=== PATIENT | female | born 1965 | race Caucasian/White ===

== ENCOUNTER 2017-11-13 07:19 | Day surgery (SDC) | payer OTHER ==
[2017-10-11 10:38] VITALS: BMI 25.2
[2017-11-13] MEDS ORDERED: fentaNYL CITRATE 250 MCG/5 ML VIAL ONE (12:10)
[2017-11-13] MEDS ORDERED: PROPOFOL 20 ML ONE (12:10)
[2017-11-13] MEDS ORDERED: MIDAZOLAM HCL 2 MG/2 ML SINGLE DOSE VIAL ONE ×2 (12:10)
[2017-11-13] MEDS ORDERED: ROCURONIUM BROMIDE 50 MG/5 ML VIAL ONE (12:10)
[2017-11-13] MEDS ORDERED: EPINEPHrine/PF 1 MG/1 ML (1:1,000) AMPULE ONE (12:13)
[2017-11-13] MEDS ORDERED: LIDOCAINE HCL 1%, 10 MG/ML (20ML VIAL) ONE (12:13)
[2017-11-13] MEDS ORDERED: ceFAZolin SODIUM 1 GM VIAL ONE (12:46)
[2017-11-13] MEDS ORDERED: DEXAMETHASONE SOD PHOSPHATE 4 MG/1 ML VIAL ONE (12:58)
[2017-11-13] MEDS ORDERED: ONDANSETRON 4 MG/2 ML VIAL ONE ×2 (12:58→15:27)
[2017-11-13] MEDS ORDERED: LIDOCAINE HCL/PF 2% SDV 5ML VIAL ONE (12:59)
[2017-11-13] MEDS ORDERED: GUM MASTIC/STORAX/MSAL/ALCOHOL 1 DRP DROPSBTL MC ONE (15:28)
[2017-11-13] MEDS ORDERED: PROMETHAZINE HCL 25 MG/1 ML VIAL ONE (15:43)
[2017-11-13] MEDS ORDERED: PROMETHAZINE HCL 25 MG/1 ML VIAL IVPUSH ONE (15:45)
[2017-11-13] MEDS ORDERED: PROMETHAZINE HCL 25 MG/1 ML VIAL IVPUSH PRN (15:48)
[2017-11-13] MEDS ORDERED: ONDANSETRON 4 MG/2 ML VIAL IVPUSH PRN (15:48)
[2017-11-13] MEDS ORDERED: oxyCODONE HCL 5 MG TABLET PO PRN (15:48)
[2017-11-13] MEDS ORDERED: LACTATED RINGERS SOLUTION 1,000 ML IV SCH (16:00)
[2017-11-13 17:35] VITALS: TEMP 97.9
[2017-11-13] MEDS ORDERED: oxyCODONE HCL 5 MG TABLET ONE (17:55)
[2017-11-13 18:14] VITALS: BP 106/64; PULSE 92
--- NOTE | 2017-11-19 10:32 | PATH ---
Surgical Pathology Report Patient Name: NICK GARCIA [facility]. Rec. #: [id number] /Age/Gender: 1965 (Age: 52) / F Account: [id number] Location: [facility] AMBUL[facility]ORY Taken: 11/13/2017 Received: 11/13/2017 Reported: 11/19/2017 Physicians: Bunny Sandoval Specimen(s) Received A: LEFT BREAST TISSUE B: RIGHT BREAST TISSUE Clinical History Breast hypertrophy/cosmetic Final Diagnosis A. LEFT BREAST TISSUE, EXCISION: SKIN AND SUBCUTANEOUS ADIPOSE TISSUE WITH NO SIGNIFICANT PATHOLOGIC FINDINGS. B. RIGHT BREAST TISSUE, EXCISION: SKIN AND SUBCUTANEOUS ADIPOSE TISSUE WITH NO SIGNIFICANT PATHOLOGIC FINDINGS. Electronically Signed Ayah Tan M.D. Gross Description A. Received in formalin labeled "left breast tissue," is 22 g, 11.0 x 5.0 x 0.6 cm aggregate of sinclair skin fragments with minimal underlying soft tissue. The largest skin portion displays 2 mora metallic jimmy. No discrete lesions are identified. [employer] sections are submitted in one cassette. B. Received in formalin labeled "right breast tissue," is a 41 g, 7.5 x 5.5 x 2.0 cm aggregate of multiple unoriented portions of fibroadipose tissue and sinclair, unremarkable skin. Sectioning reveals foci of white fibrous tissue. No discrete lesions are identified. Director [employer] sections are submitted in one cassette. 11/15/201711/15/2017
--- NOTE | 2017-11-19 14:21 | OP ---
DATE OF OPERATION: 11/13/2017 ATTENDING SURGEON: Bunny Sandoval MD [employer] SUPERVISOR: KIERRA Negrete PREOPERATIVE DIAGNOSIS: Symptomatic macromastia with ptosis. POSTOPERATIVE DIAGNOSIS: Symptomatic macromastia with ptosis. PROCEDURE PERFORMED: Breast reduction mammoplasty. DRAINS: None. COMPLICATIONS: None. ESTIMATED BLOOD LOSS: 60 mL. FLUIDS ADMINISTERED: Crystalloid solution 1.2 L. ANESTHESIA: General with laryngeal mask anesthesia. DESCRIPTION OF PROCEDURE: Patient brought to the operating room, placed supine on the operating table. After induction of general laryngeal mask anesthesia, the patient's chest was prepped with chlorhexidine solution and draped with sterile drapes. Once this was completed, the sterile surgical marking pen was used to refresh the preoperative markings, and an appropriate timeout was performed identifying the patient and the nature of the procedure, allowing all operative participants to ask questions and to raise concerns as indicated. A superomedial pedicle was chosen for both sides, and a 42-mm cookie cutter was used to imprint around the nipple-areolar complex, impressing a circular imprint and allowing for a 15-blade to incise around this inscribed area as well as the outside Hilario pattern. This was done first on the right, then the left side, respectively, with the intervening skin deepithelialized carefully with sharp scissors dissection. Hemostasis being assured with the Bovie cautery, dissection proceeded down with the Peak plasma blade outlying the superomedial pedicle, first on the right side, dissecting down until the chest wall was identified. A crescentic tissue of breast gland and skin was then removed and passed off the table as a specimen. Attention was turned to the left side, where a similar superomedial pedicle was inscribed with the Peak plasma blade, dissecting down until the chest wall was encountered, making sure to not undermine the nipple complex area. This completed, a crescent of skin and subcutaneous tissue and glandular tissue was also removed and passed off the table. Hemostasis being assured with the Bovie cautery, the concomitant closure of both breast structure mammoplasty outlines was then completed with interrupted 2-0 Vicryl to deep parenchyma, followed by interrupted 3-0 Monocryl for the deep dermal. Lastly, a 4-0 Biosyn subcuticular suture was placed. Mastisol and Steri-Strips were applied, fluff dressings, ABD pads, and a surgical bra were placed. Patient was extubated, transferred to the postanesthesia care unit in stable condition. BUNNY BRITO M.D. [id number]
== END 2017-11-13 18:18 | disposition home or self-care (01) ==
LOC: FASU 07:19
PROVIDERS: ATTEND Surgery Plastic and Reconstructive Surgery
PROC: 0H0V0ZZ Alteration of Bilateral Breast, Open Approach (ICD-10-PCS; principal; 2017-11-13 12:55)
DX: N62 Hypertrophy of breast (principal); N64.81 Ptosis of breast
CPT/HCPCS: 88304-TC; 94760